=== PATIENT | male | born 1955 | race Asian ===

== ENCOUNTER 2017-04-06 09:06 | Emergency (ER) | payer MEDICAID ==
[~2017-04-06] VITALS: Ht 167.6 cm; Wt 68.2 kg
[2017-04-06 10:28] LABS: EOSINOPHILS % (AUTO) 0.1 % (1.0-6.0); HEMATOCRIT 48.2 % (41-53); HEMOGLOBIN 16.5 g/dL (13.5-17.5); LYMPHOCYTES # (AUTO) 1.3 K/uL (1.0-4.8); LYMPHOCYTES % (AUTO) 8.5 % (22.0-44.0); MEAN CORPUSCULAR HGB CONC 34.2 G/dL (31.0-37.0); MEAN CORPUSCULAR VOLUME 91 fL (80-100); MONOCYTES # (AUTO) 0.5 K/uL (0.1-1.0); MONOCYTES % (AUTO) 3.5 % (2.0-9.0); NEUTROPHILS # (AUTO) 12.8 K/uL (1.8-7.7); NEUTROPHILS % (AUTO) 86.9 % (40.0-70.0); PLATELET COUNT (AUTO) 182 K/uL (150-450); RED BLOOD CELL COUNT(AUTO) 5.33 MIL/uL (4.50-5.90); RED CELL DISTRIBUTION WIDTH 13.5 % (11.5-14.5); WHITE BLOOD COUNT (AUTO) 14.8 K/uL (4.5-11.0)
[2017-04-06 10:34] LABS: ANION GAP 12 mmol/L (8-16); CALCIUM, TOTAL 9.4 mg/dL (8.8-10.5); CARBON DIOXIDE 25 mmol/L (22-29); CHLORIDE 103 mmol/L (98-107); CREATININE 1.12 mg/dL (0.60-1.30); GLOMERULAR FILTR. RATE CALC > 60 mL/min (>60); POTASSIUM 4.1 mmol/L (3.5-5.1); SODIUM SERUM 140 mmol/L (136-145); UREA NITROGEN, BLOOD 15 mg/dL (7-18)
[2017-04-06 10:52] LABS: B-TYPE NATRIURETIC PEPTIDE 16 pg/mL (0-100)
[2017-04-06 10:59] LABS: ALANINE AMINOTRANSFERASE 33 U/L (12-78); ALBUMIN 4.6 g/dL (3.4-5.0); ASPARTATE AMINOTRANSFERASE 23 U/L (15-37); BILIRUBIN,TOTAL 0.4 mg/dL (0.1-1.0); CREATINE KINASE MB 1.9 ng/mL (0-5); CREATINE KINASE, TOTAL 190 U/L (39-308); TOTAL PROTEIN, SERUM 8.6 g/dL (6.4-8.2)
[2017-04-06] MEDS ORDERED: LISINOPRIL 10 MG TABLET PO ONE (11:00)
[2017-04-06] MEDS ORDERED: LORazepam 1 MG TABLET PO ONE (11:00)
[2017-04-06] MEDS ORDERED: MAG HYDROX/AL HYDROX/SIMETH ES 30 ML SUSPENSION UDCUP PO ONE (12:30)
[2017-04-06] MEDS ORDERED: PANTOPRAZOLE SODIUM 40 MG DR TABLET PO ONE (12:30)
[2017-04-06] MEDS ORDERED: CloNIDine HCL 0.1 MG TABLET PO ONE (13:45)
[2017-04-06 13:57] VITALS: BP 187/96
== END 2017-04-06 14:05 | disposition home or self-care (01) ==
LOC: EMS 09:07
DX: R10.13 Epigastric pain (principal); I10 Essential (primary) hypertension; F15.10 Other stimulant abuse, uncomplicated; F17.210 Nicotine dependence, cigarettes, uncomplicated
CPT/HCPCS: 83036; 93005; 99285

== ENCOUNTER 2022-12-09 10:51 | Emergency (ER) | payer MEDICARE, OTHER ==
[~2022-12-09] VITALS: Ht 172.7 cm; Wt 75.0 kg
[2022-12-09 10:59] VITALS: BP 130/53
== END 2022-12-09 12:09 | disposition home or self-care (01) ==
LOC: EMS 10:58
DX: R40.0 Somnolence (principal); F17.210 Nicotine dependence, cigarettes, uncomplicated
CPT/HCPCS: 99281; Z7502

== ENCOUNTER 2023-03-23 13:31 | Emergency (ER) | payer OTHER ==
[~2023-03-23] VITALS: Ht 165.1 cm; Wt 77.3 kg
[2023-03-23 13:41] VITALS: TEMP 97.9
[2023-03-23] MEDS ORDERED: IBUPROFEN 600 MG TABLET PO ONE (15:45)
[2023-03-23] MEDS ORDERED: ACETAMINOPHEN/CODEINE 300-30 MG TABLET PO ONE (15:45)
[2023-03-23 18:00] VITALS: BP 124/72; PULSE 66; RESP 18
[2023-03-23] MEDS ORDERED: IBUP-1554 PO (18:17)
[2023-03-23] MEDS ORDERED: ACET-2080 PO (18:17)
== END 2023-03-23 18:34 | disposition home or self-care (01) ==
LOC: EMS 14:27
DX: S93.402A Sprain of unspecified ligament of left ankle, initial encounter (principal); S90.32XA Contusion of left foot, initial encounter; F17.210 Nicotine dependence, cigarettes, uncomplicated; X58.XXXA Exposure to other specified factors, initial encounter; Y93.89 Activity, other specified; Y92.89 Other specified places as the place of occurrence of the external cause; Y99.8 Other external cause status
CPT/HCPCS: 99284